=== PATIENT | female | born 1985 | race Caucasian/White ===

== ENCOUNTER 2017-01-15 23:36 | Emergency (ER) | payer MEDICAID, OTHER ==
[2017-01-15] MEDS ORDERED: Ibuprofen 800 MG TAB ONE (23:49)
--- NOTE | 2017-01-16 08:01 | RAD ---
THREE VIEWS RIGHT LEG: INDICATION: Pain, injury. FINDINGS: No fracture or dislocation or other acute osseous abnormality. IMPRESSION: No acute abnormality. POS: [facility]
== END 2017-01-16 00:12 | disposition home or self-care (01) ==
LOC: MADERS 23:36
DX: M25.561 Pain in right knee (principal); I34.1 Nonrheumatic mitral (valve) prolapse; F17.210 Nicotine dependence, cigarettes, uncomplicated; W18.30XA Fall on same level, unspecified, initial encounter